=== PATIENT | male | born 1985 | race Caucasian/White ===

== ENCOUNTER 2017-10-21 20:30 | Emergency (ER) | payer MEDICAID | END 2017-10-21 23:53 | disposition home or self-care (01) | LOC: FTE 20:30 | DX: L60.0 Ingrowing nail (principal) | CPT/HCPCS: 99283; Z7502 ==

== ENCOUNTER 2018-06-18 01:48 | Emergency (ER) | payer MEDICAID | END 2018-06-18 06:05 | disposition home or self-care (01) | LOC: FTE 06:05 | DX: B02.9 Zoster without complications (principal) | CPT/HCPCS: 99283; Z7502 ==